=== PATIENT | male | born 1970 | race Caucasian/White ===

== ENCOUNTER 2018-08-06 19:10 | Inpatient (IN) | payer SELFPAY ==
[~2018-08-06] VITALS: Ht 165.1 cm; Wt 104.1 kg
[2018-08-06 19:14] VITALS: Ht 165.1 cm; Wt 104.1 kg
[2018-08-06 19:59] LABS: BASOPHIL % 0.4 % (0-2); PLATELET COUNT 258 x10^3mcL (130-400); RED CELL DISTRIBUTION WIDTH 13.3 % (11.5-14.5)
[2018-08-06 20:11] LABS: ALBUMIN 3.9 g/dL (3.4-5.0); BILIRUBIN TOTAL 0.31 mg/dL (0.20-1.00); CALCIUM 8.8 mg/dL (8.5-10.1); CARBON DIOXIDE 25.5 mmol/L (21-32); CREATININE SERUM 1.5 mg/dL (0.7-1.3); TOTAL PROTEIN, SERUM 8.2 g/dL (6.4-8.2)
[2018-08-06 20:19] LABS: POTASSIUM SERUM 3.2 mmol/L (3.5-5.1)
[2018-08-06] MEDS ORDERED: METFORMIN HCL500 MG PO (23:00)
[2018-08-06] MEDS ORDERED: HYDROCHLOROTHIA25 MG PO (23:00)
[2018-08-06] MEDS ORDERED: ZESTRIL5 MG PO (23:00)
[2018-08-06 23:01] LABS: CHOLESTEROL/HDL RATIO 5.6; MAGNESIUM 2.2 mg/dL (1.8-2.4); PHOSPHOROUS 4.2 mg/dL (2.5-4.9)
[2018-08-06 23:06] LABS: T3 TOTAL 1.09 ng/mL
[2018-08-06 23:11] LABS: FREE THYROXINE INDEX 2.5 ug/dL (1.4-4.5); T4(THYROXINE) 8.2 ug/dL (4.7-13.3)
[2018-08-07] VITALS: BP 134/86
[2018-08-07 03:50] LABS: BASOPHIL % 0.6 % (0-2); PLATELET COUNT 232 x10^3mcL (130-400)
[2018-08-07 04:10] LABS: CALCIUM 8.6 mg/dL (8.5-10.1); CHLORIDE SERUM 103 mmol/L (98-107); CREATININE SERUM 1.1 mg/dL (0.7-1.3); GFR1 > 60 mL/min; GLUCOSE SERUM 149 mg/dL (74-106); MAGNESIUM 2.3 mg/dL (1.8-2.4); PHOSPHOROUS 4.4 mg/dL (2.5-4.9); POTASSIUM SERUM 3.4 mmol/L (3.5-5.1); SODIUM SERUM 134 mmol/L (136-145)
[2018-08-07 05:26] VITALS: BP 141/80
[2018-08-07 08:19] LABS: UA SPECIFIC GRAVITY >=1.030 (1.005-1.035); microscopic required? YES; urine erythrocyte NEGATIVE (NEGATIVE)
[2018-08-07 08:32] VITALS: BP 137/73
[2018-08-07 08:43] LABS: AMPHETAMINE QUAL UR NONE DETECTED (See below)
[2018-08-07 12:41] VITALS: BP 141/82
[2018-08-07] MEDS ORDERED: METOPROLOL TART25 M1 PO (16:00)
[2018-08-07] MEDS ORDERED: ZESTRIL20 MG PO (16:01)
[2018-08-07 16:38] VITALS: BP 131/84
[2018-08-07] MEDS ORDERED: LIPI10 PO (16:58)
[2018-08-07] MEDS ORDERED: ECO81 PO (16:58)
[2018-08-07] MEDS ORDERED: ATIVAN1 MG PO (16:58)
== END 2018-08-07 17:45 | disposition home or self-care (01) | DRG 205 ==
LOC: ED 19:10 → DU 21:25
PROVIDERS: Internal Medicine; Specialist
DX: M94.0 Chondrocostal junction syndrome [Tietze] (principal); N17.0 Acute kidney failure with tubular necrosis; E11.65 Type 2 diabetes mellitus with hyperglycemia; E87.6 Hypokalemia; E78.5 Hyperlipidemia, unspecified; I16.0 Hypertensive urgency; F41.9 Anxiety disorder, unspecified; Z79.84 Long term (current) use of oral hypoglycemic drugs; Z79.899 Other long term (current) drug therapy; Z72.89 Other problems related to lifestyle; Z82.49 Family history of ischemic heart disease and other diseases of the circulatory system
CPT/HCPCS: 82962; 83880; 84439; J2405; J3010; J7030; Q0092